=== PATIENT | male | born 1995 | race Caucasian/White ===

== ENCOUNTER 2025-08-03 11:09 | Emergency (ER) | payer OTHER ==
[~2025-08-03] VITALS: Ht 193 cm; Wt 120.2 kg
[2025-08-03] MEDS ORDERED: GABA600T12 PO (11:32)
[2025-08-03] MEDS ORDERED: QUET200T31 PO (11:32)
[2025-08-03 12:09] LABS: PLATELET COUNT (AUTO) 237 K/uL (152-348); RED BLOOD CELL COUNT(AUTO) 4.97 MIL/uL (4.06-5.63); RED CELL DISTRIBUTION WIDTH 12.6 % (12.1-16.2); WHITE BLOOD COUNT (AUTO) 7.1 K/uL (3.6-10.2)
[2025-08-03] MEDS ORDERED: MORPHINE SULFATE 2 MG/1 ML DISP.SYRIN ONE (12:13)
[2025-08-03] MEDS ORDERED: ONDANSETRON 4 MG/2 ML VIAL ONE (12:13)
[2025-08-03] MEDS: ONDANSETRON 4 MG/2 ML VIAL IV ONE (12:13)
[2025-08-03] MEDS: MORPHINE SULFATE 2 MG/1 ML DISP.SYRIN IV ONE (12:15)
[2025-08-03 12:24] LABS: ASPARTATE AMINOTRANSFERASE 9 U/L (15-37); CREATININE 1.0 mg/dL (0.6-1.3); SODIUM SERUM 138 mmol/L (136-145); TOTAL PROTEIN, SERUM 7.5 g/dL (6.4-8.2); UREA NITROGEN, BLOOD 12 mg/dL (7-18)
[2025-08-03] MEDS: IV NORMAL SALINE 1000 ML BAG IV ONE (12:39)
[2025-08-03] MEDS ORDERED: SWABABLE VALVE TRANSFER SET EA MC ONE (13:04)
[2025-08-03] MEDS ORDERED: IV NORMAL SALINE 250 ML IV ONE (13:04)
[2025-08-03] MEDS ORDERED: IOHEXOL 300MG/ML 100 ML INFUS..BTL ONE (13:04)
[2025-08-03] MEDS: METOCLOPRAMIDE HCL 10 MG/2 ML VIAL IV ONE (14:02)
[2025-08-03] MEDS ORDERED: METOCLOPRAMIDE HCL 10 MG/2 ML VIAL ONE (14:02)
[2025-08-03 14:24] VITALS: BP 129/77; O2SAT 96
[2025-08-03 14:32] LABS: *BILIRUBIN,URIN NEGATIVE (NEGATIVE); *BLOOD, URINE NEGATIVE (NEGATIVE); *CLARITY,URINE CLEAR (CLEAR); *COLOR,URINE YELLOW (YELLOW); *KETONES,URINE TRACE (NEGATIVE); *PROTEIN,URINE NEGATIVE (NEGATIVE); *UROBILINOGEN,URINE 0.2 E.U./dl (NORMAL); LEUKOCYTE ESTERASE ,URINE NEGATIVE (NEGATIVE); NITRITE, URINE NEGATIVE (NEGATIVE); UGLUCOSE NEGATIVE (NEGATIVE)
[2025-08-03 14:41] LABS: SQUAMOUS EPITHELIAL CELL,UR FEW /HPF (NONE SEEN)
[2025-08-03] MEDS ORDERED: OXYC-128 PO (14:45)
[2025-08-03] MEDS ORDERED: ONDA4TAB5 PO (14:47)
== END 2025-08-03 14:59 | disposition home or self-care (01) ==
LOC: ER 11:09
DX: R10.32 Left lower quadrant pain (principal); F17.200 Nicotine dependence, unspecified, uncomplicated; F31.9 Bipolar disorder, unspecified; K64.9 Unspecified hemorrhoids; K76.0 Fatty (change of) liver, not elsewhere classified; Z79.899 Other long term (current) drug therapy
CPT/HCPCS: 99285; 74177; 96374; 96375; 71045; 96361; 80076; 80048; 81001; 83690; 85025; 85730; 84484; 36415; 93005; J2765; J2405; Q9967; J2270; J7040; A4606; A4663